=== PATIENT | female | born 1970 | race African-American/Black ===

== ENCOUNTER 2017-09-12 22:25 | Inpatient (IN) | payer OTHER ==
[~2017-09-12] VITALS: Ht 167.6 cm; Wt 86.6 kg
[2017-09-12] MEDS ORDERED: HEPARIN SODIUM 5000UNIT/ML 1ML VIAL ONE (22:41)
[2017-09-12] MEDS ORDERED: FENTANYL CITRATE PF 50 MCG/1 ML 2ML VIAL ONE ×2 (22:55→23:22)
[2017-09-12 22:56] LABS: POTASSIUM 4.1 mmol/L (3.5-5.1)
[2017-09-12] MEDS ORDERED: NITROGLYCERIN 50 MG/D5% WATER 1 BOT ONE (22:56)
[2017-09-12] MEDS ORDERED: HEPARIN SODIUM 1000UNIT/ML 10ML VIAL ONE (22:59)
[2017-09-12] MEDS ORDERED: NITROGLYCERIN 5 MG/ML 10 ML VIAL IV ONE (22:59)
[2017-09-12] MEDS ORDERED: IOPAMIDOL-370 100 ML VIAL IV ONE (22:59)
[2017-09-12 23:00] LABS: INR 0.95 (0.85-1.15); PARTIAL THROMBOPLASTIN TIME 24.3 SEC (26.3-35.5)
[2017-09-12] MEDS ORDERED: LIDOCAINE HCL 2% 20ML ONE (23:00)
[2017-09-12] MEDS ORDERED: ISOVUE-370 50ML VIAL IV ONE (23:00)
[2017-09-12 23:01] LABS: BASOPHILS % (AUTO) 0.7 % (0.0-5.0); EOSINOPHILS % (AUTO) 0.4 % (0.0-8.0); HEMATOCRIT 32.3 % (36-48); LYMPHOCYTES % (AUTO) 10.4 % (21.0-51.0); MEAN CORPUSCULAR HGB CONC 31.7 g/dL (32.0-36.0); MEAN CORPUSCULAR VOLUME 69.4 fL (79-99); MONOCYTES % (AUTO) 6.3 % (3.0-13.0); NEUTROPHILS % (AUTO) 82.2 % (40.0-77.0); PLATELET COUNT (AUTO) 499 K/uL (130-400); RED BLOOD CELL COUNT(AUTO) 4.65 MIL/uL (4.00-5.50); RED CELL DISTRIBUTION WIDTH 16.8 % (11.0-15.5); WHITE BLOOD COUNT (AUTO) 9.9 K/uL (4.8-10.8)
[2017-09-12] MEDS ORDERED: DOPAMINE HCL 400 MG/D5%-WATER 0 ML IV ONE (23:01)
[2017-09-12] MEDS ORDERED: ATROPINE SULFATE 0.1 MG/ML 10 ML SYG IVP ONE (23:01)
[2017-09-12] MEDS ORDERED: METOPROLOL TARTRATE 1 MG/ML 5ML VIAL IV ONE ×2 (23:01→23:18)
[2017-09-12 23:10] LABS: ALBUMIN 3.4 g/dL (3.5-5.0); BILIRUBIN,TOTAL 0.4 mg/dL (0.2-1.0); CREATINE KINASE MB 0.7 ng/mL (0.5-3.6); TOTAL PROTEIN, SERUM 8.2 g/dL (6.0-8.3)
[2017-09-12] MEDS ORDERED: ASPIRIN 81MG TAB.CHEW ONE (23:15)
[2017-09-12] MEDS ORDERED: MIDAZOLAM HCL 1 MG/ML 2ML VIAL ONE ×2 (23:15→23:49)
[2017-09-12] MEDS ORDERED: NITROGLYCERIN 0.4 MG SL TAB SL ONE (23:15)
[2017-09-12] MEDS ORDERED: ONDANSETRON HCL 4 MG/2 ML VIAL ONE (23:46)
[2017-09-13] VITALS (15 sets, daily range): BP systolic 119–168; BP diastolic 52–90
[2017-09-13] MEDS ORDERED: LABETALOL HCL 5 MG/ML 20ML VIAL IV ONE
[2017-09-13] MEDS ORDERED: CLOPIDOGREL BISULFATE 300 MG TAB ONE (00:03)
[2017-09-13] MEDS ORDERED: SODIUM CHLORIDE 0.9% 1000ML 1,000 ML IV SCH (00:14)
[2017-09-13] MEDS ORDERED: ACETAMINOPHEN-CODEINE 300/30MG TAB PO PRN ×2 (00:15)
[2017-09-13] MEDS ORDERED: ONDANSETRON HCL 4 MG/2 ML VIAL IVP PRN (00:15)
[2017-09-13] MEDS ORDERED: ALPRAZOLAM 0.5 MG TABLET PO PRN (00:15)
[2017-09-13] MEDS ORDERED: NITROGLYCERIN 50 MG/D5% WATER 1 BOT IV PRN (00:15)
[2017-09-13] MEDS ORDERED: TEMAZEPAM 30 MG CAP PO PRN (00:15)
[2017-09-13] MEDS ORDERED: AMLODIPINE BESYLATE 5 MG TAB PO ONE (00:52)
[2017-09-13] MEDS ORDERED: POTASSIUM CHLORIDE 10% ELIXIR 20 MEQ/15 ML UDCUP PO PRN (01:30)
[2017-09-13] MEDS ORDERED: LIDOCAINE HCL-MPF 1% 2ML VIAL IVP PRN (01:30)
[2017-09-13] MEDS ORDERED: POTASSIUM CHLORIDE 20MEQ/100ML 100 ML IV PRN (01:30)
[2017-09-13] MEDS ORDERED: ACETAMINOPHEN 325 MG TAB ONE (02:33)
[2017-09-13 02:50] LABS: CREATINE KINASE MB 22.3 ng/mL (0.5-3.6)
[2017-09-13 02:52] LABS: TROPONIN I 7.84 ng/mL (0.00-0.06)
[2017-09-13] MEDS ORDERED: ASPI-555 PO (03:28)
[2017-09-13] MEDS ORDERED: METO25TA6 PO (03:28)
[2017-09-13 05:36] LABS: MEAN CORPUSCULAR HEMOGLOBIN 21.6 pg (27.0-33.0); MEAN CORPUSCULAR HGB CONC 31.5 g/dL (32.0-36.0); MEAN CORPUSCULAR VOLUME 68.5 fL (79-99); PLATELET COUNT (AUTO) 436 K/uL (130-400); RED BLOOD CELL COUNT(AUTO) 3.94 MIL/uL (4.00-5.50); RED CELL DISTRIBUTION WIDTH 16.7 % (11.0-15.5); WHITE BLOOD COUNT (AUTO) 9.7 K/uL (4.8-10.8)
[2017-09-13 05:48] LABS: CARBON DIOXIDE 24 mmol/L (21-32); CHLORIDE 105 mmol/L (101-111); CHOLESTEROL 155 mg/dL (<200); CREATININE 1.1 mg/dL (0.5-1.5); GLOMERULAR FILTR. RATE CALC 68 mL/min (>60); GLUCOSE,RANDOM 118 mg/dL (70-105); HDL CHOLESTEROL 43 mg/dL (35-85); LDL DIRECT 100 mg/dL (0-99); POTASSIUM 3.6 mmol/L (3.5-5.1); SODIUM SERUM 137 mmol/L (136-145); TRIGLYCERIDES 100 mg/dL (30-200); UREA NITROGEN, BLOOD 10 mg/dL (7-18)
[2017-09-13 06:07] LABS: RETICULOCYTE % (AUTO) 2.27 % (0.42-2.23)
[2017-09-13 06:14] LABS: % IRON SATURATION 3.1 % (22-44); FERRITIN 6 ng/mL (15-150); IRON, SERUM 12 mcg/dL (50-170); TOTAL IRON BINDING CAPACITY 382 mcg/dL (250-450)
[2017-09-13] MEDS ORDERED: CLOPIDOGREL BISULFATE 300 MG TAB PO SCH (08:11)
[2017-09-13] MEDS ORDERED: AMLODIPINE BESYLATE 5 MG TAB PO SCH (08:13)
[2017-09-13] MEDS ORDERED: PANTOPRAZOLE SODIUM 40 MG TABLET.DR PO SCH (09:00)
[2017-09-13] MEDS ORDERED: ASPIRIN 325 MG TABLET PO SCH (09:00)
[2017-09-13] MEDS: CLOPIDOGREL BISULFATE 75 MG TAB PO SCH (09:12)
[2017-09-13] MEDS: ATORVASTATIN CALCIUM 10 MG TABLET PO SCH (09:12)
[2017-09-13] MEDS: ASPIRIN 81MG TAB.CHEW PO SCH (09:12)
[2017-09-13] MEDS: AMLODIPINE BESYLATE 5 MG TAB PO SCH (09:13)
[2017-09-13] MEDS: METOPROLOL TARTRATE 50 MG TAB PO SCH ×2 (09:13→22:14)
[2017-09-13] MEDS: HYDROCODONE/ACETAMINOPHEN 5/325 MG TAB PO PRN ×2 (09:32→19:33)
[2017-09-13] MEDS: POTASSIUM CHLORIDE 20 MEQ ERTAB PO PRN ×2 (10:17→11:52)
[2017-09-14 03:28] LABS: HEMATOCRIT 28.2 % (36-48); MEAN CORPUSCULAR HGB CONC 31.5 g/dL (32.0-36.0); MEAN CORPUSCULAR VOLUME 69.7 fL (79-99); PLATELET COUNT (AUTO) 393 K/uL (130-400); RED BLOOD CELL COUNT(AUTO) 4.04 MIL/uL (4.00-5.50); RED CELL DISTRIBUTION WIDTH 16.9 % (11.0-15.5); WHITE BLOOD COUNT (AUTO) 9.6 K/uL (4.8-10.8)
[2017-09-14 03:57] LABS: CREATINE KINASE MB 11.7 ng/mL (0.5-3.6); CREATININE 0.9 mg/dL (0.5-1.5); POTASSIUM 3.8 mmol/L (3.5-5.1)
[2017-09-14 04:00] VITALS: BP 116/58
[2017-09-14 04:02] LABS: TROPONIN I 8.88 ng/mL (0.00-0.06)
[2017-09-14] MEDS: POTASSIUM CHLORIDE 20 MEQ ERTAB PO PRN (05:51)
[2017-09-14 07:00] VITALS: BP 164/89
[2017-09-14] MEDS: METOPROLOL TARTRATE 50 MG TAB PO SCH ×2 (07:54→20:01)
[2017-09-14] MEDS: ATORVASTATIN CALCIUM 10 MG TABLET PO SCH (07:54)
[2017-09-14] MEDS: AMLODIPINE BESYLATE 5 MG TAB PO SCH (07:54)
[2017-09-14] MEDS: CLOPIDOGREL BISULFATE 75 MG TAB PO SCH (07:54)
[2017-09-14] MEDS: ASPIRIN 81MG TAB.CHEW PO SCH (07:55)
[2017-09-14] MEDS: HYDROCODONE/ACETAMINOPHEN 5/325 MG TAB PO PRN (07:55)
[2017-09-14] MEDS ORDERED: LOSARTAN 100 MG TABLET PO SCH (09:00)
[2017-09-14] MEDS ORDERED: METO50TA18 PO (10:02)
[2017-09-14] MEDS ORDERED: METO50 PO (10:13)
[2017-09-14] MEDS ORDERED: LOSA100T2 PO (10:13)
[2017-09-14] MEDS ORDERED: CLOP75TA14 PO (10:13)
[2017-09-14] MEDS ORDERED: ATOR10 PO (10:13)
[2017-09-14 11:00] VITALS: BP 148/85
[2017-09-14 16:00] VITALS: BP 145/83
== END 2017-09-14 20:32 | disposition home or self-care (01) | DRG 247 ==
LOC: EDH 22:25 → EDHIP 22:26 → 2CH 09-13 00:54 → 2BH 09-13 16:52
PROVIDERS: ADMIT Internal Medicine; ATTEND Internal Medicine
PROC: 027034Z Dilation of Coronary Artery, One Artery with Drug-eluting Intraluminal Device, Percutaneous Approach (ICD-10-PCS; principal; 2017-09-13)
PROC: B2111ZZ Fluoroscopy of Multiple Coronary Arteries using Low Osmolar Contrast (ICD-10-PCS; 2017-09-13)
PROC: 4A023N7 Measurement of Cardiac Sampling and Pressure, Left Heart, Percutaneous Approach (ICD-10-PCS; 2017-09-13)
DX: I21.11 ST elevation (STEMI) myocardial infarction involving right coronary artery (principal); I47.2 Ventricular tachycardia; I11.9 Hypertensive heart disease without heart failure; E78.5 Hyperlipidemia, unspecified; F12.90 Cannabis use, unspecified, uncomplicated; F17.210 Nicotine dependence, cigarettes, uncomplicated; I16.0 Hypertensive urgency; I25.10 Atherosclerotic heart disease of native coronary artery without angina pectoris; I25.2 Old myocardial infarction; Z91.19 Patient's noncompliance with other medical treatment and regimen; Z90.710 Acquired absence of both cervix and uterus; Z82.49 Family history of ischemic heart disease and other diseases of the circulatory system
CPT/HCPCS: 36415; 71045; 76882; 80048; 80053; 80061; 82550; 82553; 82607; 82728; 82746; 82948; 83874; 84484; 84703; 85025; 85027; 85347; 85610; 85730; 93005; 93306; 93454; 99152; 99153; 99291; C1725; C1769; C1887; C1894; C9600; C9606; J0461; J1265; J1644; J2250; J2405; J3010; J3490; Q9967

== ENCOUNTER 2017-12-23 23:25 | Inpatient (IN) | payer OTHER, SELFPAY ==
[~2017-12-23] VITALS: Ht 167.6 cm; Wt 84.7 kg
[~2017-12-23 23:25] MED LIST: ASPI-555 PO; ATOR10 PO; CLOP75TA14 PO; LOSA100T2 PO; METO50 PO
[2017-12-23] MEDS ORDERED: NITROGLYCERIN 1GM/1 INCH PACKET TD ONE (23:43)
[2017-12-23] MEDS ORDERED: ASPIRIN 325 MG TABLET ONE (23:44)
[2017-12-23 23:54] LABS: INR 1.02 (0.85-1.15); PARTIAL THROMBOPLASTIN TIME 30.1 SEC (26.3-35.5); PROTHROMBIN TIME 10.7 SEC (9.6-11.6)
[2017-12-23 23:55] LABS: CARBON DIOXIDE 22 mmol/L (21-32); CHLORIDE 98 mmol/L (101-111); CREATININE 1.3 mg/dL (0.5-1.5); GLOMERULAR FILTR. RATE CALC 56 mL/min (>60); GLUCOSE,RANDOM 130 mg/dL (70-105); POTASSIUM 3.5 mmol/L (3.5-5.1); SODIUM SERUM 131 mmol/L (136-145); UREA NITROGEN, BLOOD 9 mg/dL (7-18)
[2017-12-23 23:58] LABS: BASOPHILS % (AUTO) 0.8 % (0.0-5.0); EOSINOPHILS % (AUTO) 0.1 % (0.0-8.0); LYMPHOCYTES % (AUTO) 7.7 % (21.0-51.0); MEAN CORPUSCULAR HEMOGLOBIN 20.8 pg (27.0-33.0); MEAN CORPUSCULAR HGB CONC 31.2 g/dL (32.0-36.0); MEAN CORPUSCULAR VOLUME 66.6 fL (79-99); MONOCYTES % (AUTO) 6.9 % (3.0-13.0); NEUTROPHILS % (AUTO) 84.5 % (40.0-77.0); NUCLEATED RED BLOOD CELLS 0.1 % (0.0-0.19); PLATELET COUNT (AUTO) 398 K/uL (130-400); RED BLOOD CELL COUNT(AUTO) 3.74 MIL/uL (4.00-5.50); RED CELL DISTRIBUTION WIDTH 22.8 % (11.0-15.5); WHITE BLOOD COUNT (AUTO) 10.2 K/uL (4.8-10.8)
[2017-12-24 00:10] LABS: ALANINE AMINOTRANSFERASE 20 U/L (12-78); ALBUMIN 2.9 g/dL (3.5-5.0); ASPARTATE AMINOTRANSFERASE 26 U/L (10-37); BILIRUBIN,TOTAL 0.4 mg/dL (0.2-1.0); CREATINE KINASE MB < 0.5 ng/mL (0.5-3.6); CREATINE KINASE, TOTAL 35 U/L (21-232); MYOGLOBIN 27 ng/mL (10-92); TOTAL PROTEIN, SERUM 7.2 g/dL (6.0-8.3)
[2017-12-24 00:25] LABS: AMPHET/METH SCREEN,URINE NEGATIVE (NEGATIVE); BARBITURATE SCREEN, URINE NEGATIVE (NEGATIVE); BENZODIAZEPINES SCREEN,URINE POSITIVE (NEGATIVE); CANNABINOID SCREEN,URINE POSITIVE (NEGATIVE); COCAINE SCREEN,URINE POSITIVE (NEGATIVE); OPIATE SCREEN,URINE NEGATIVE (NEGATIVE); PHENCYCLIDINE SCREEN,URINE NEGATIVE (NEGATIVE)
[2017-12-24] MEDS ORDERED: KETOROLAC TROMETHAMINE 30MG/ML ONE (04:07)
[2017-12-24 06:45] LABS: EOSINOPHILS % (AUTO) 0.1 % (0.0-8.0); HEMATOCRIT 24.5 % (36-48); LYMPHOCYTES % (AUTO) 10.5 % (21.0-51.0); MEAN CORPUSCULAR HEMOGLOBIN 21.4 pg (27.0-33.0); MEAN CORPUSCULAR HGB CONC 31.4 g/dL (32.0-36.0); MONOCYTES % (AUTO) 11.4 % (3.0-13.0); NUCLEATED RED BLOOD CELLS 0.1 % (0.0-0.19); PLATELET COUNT (AUTO) 362 K/uL (130-400); RED BLOOD CELL COUNT(AUTO) 3.61 MIL/uL (4.00-5.50); RED CELL DISTRIBUTION WIDTH 22.9 % (11.0-15.5); WHITE BLOOD COUNT (AUTO) 7.7 K/uL (4.8-10.8)
[2017-12-24 06:52] LABS: CREATININE 1.2 mg/dL (0.5-1.5); POTASSIUM 3.4 mmol/L (3.5-5.1)
[2017-12-24 06:58] LABS: ALBUMIN 2.8 g/dL (3.5-5.0); BILIRUBIN,TOTAL 0.4 mg/dL (0.2-1.0); TOTAL PROTEIN, SERUM 6.9 g/dL (6.0-8.3)
[2017-12-24] MEDS: VITAMIN B COMPLEX 1 CAPSULE PO SCH (09:45)
[2017-12-24] MEDS: METOPROLOL TARTRATE 50 MG TAB PO SCH ×2 (09:45→21:09)
[2017-12-24] MEDS: FERROUS FUMARATE 324 MG TABLET PO SCH ×2 (09:45→21:09)
[2017-12-24] MEDS: LOSARTAN 100 MG TABLET PO SCH (09:45)
[2017-12-24] MEDS: ASPIRIN 81MG TAB.CHEW PO SCH (09:45)
[2017-12-24] MEDS ORDERED: CLOPIDOGREL BISULFATE 300 MG TAB PO SCH (09:45)
[2017-12-24] MEDS ORDERED: DOCUSATE SODIUM 100 MG CAP PO ONE (10:31)
[2017-12-24] MEDS ORDERED: ATORVASTATIN CALCIUM 10 MG TABLET ONE (10:31)
[2017-12-24] MEDS ORDERED: CLOPIDOGREL BISULFATE 300 MG TAB ONE (10:31)
[2017-12-24] MEDS ORDERED: METOPROLOL TARTRATE 50 MG TAB ONE (10:32)
[2017-12-24] MEDS ORDERED: LOSARTAN 50 MG TABLET ONE (10:32)
[2017-12-24] MEDS: PANTOPRAZOLE SODIUM 40 MG TABLET.DR PO SCH (16:30)
[2017-12-24] MEDS ORDERED: POTASSIUM CHLORIDE 20MEQ/100ML 100 ML IV PRN (16:30)
[2017-12-24] MEDS ORDERED: POTASSIUM CHLORIDE 10% ELIXIR 20 MEQ/15 ML UDCUP PO PRN (16:30)
[2017-12-24] MEDS ORDERED: POTASSIUM CHLORIDE 20 MEQ ERTAB PO PRN (16:30)
[2017-12-24] MEDS ORDERED: LIDOCAINE HCL-MPF 1% 2ML VIAL IVP PRN (16:30)
[2017-12-24 17:03] VITALS: BP 139/85
[2017-12-24 19:36] VITALS: BP 147/96
[2017-12-24] MEDS: ATORVASTATIN CALCIUM 20 MG TABLET PO SCH (21:09)
[2017-12-24 23:43] VITALS: BP 130/89
[2017-12-24] MEDS: ACETAMINOPHEN 325 MG TAB PO PRN (23:54)
[2017-12-24] MEDS: ONDANSETRON HCL 4 MG/2 ML VIAL IVP PRN (23:54)
[2017-12-25] VITALS (7 sets, daily range): BP systolic 130–151; BP diastolic 71–82
[2017-12-25 04:18] LABS: BASOPHILS % (AUTO) 1.2 % (0.0-5.0); LYMPHOCYTES % (AUTO) 25.8 % (21.0-51.0); MEAN CORPUSCULAR HEMOGLOBIN 20.5 pg (27.0-33.0); MEAN CORPUSCULAR HGB CONC 30.6 g/dL (32.0-36.0); MEAN CORPUSCULAR VOLUME 67.2 fL (79-99); MONOCYTES % (AUTO) 17.7 % (3.0-13.0); NEUTROPHILS % (AUTO) 54.3 % (40.0-77.0); PLATELET COUNT (AUTO) 273 K/uL (130-400); RED BLOOD CELL COUNT(AUTO) 3.72 MIL/uL (4.00-5.50); RED CELL DISTRIBUTION WIDTH 22.9 % (11.0-15.5); WHITE BLOOD COUNT (AUTO) 6.8 K/uL (4.8-10.8)
[2017-12-25 04:41] LABS: HEMOGLOBIN A1C 4.9 % (4.0-6.0)
[2017-12-25 04:43] LABS: ALBUMIN 2.6 g/dL (3.5-5.0); BILIRUBIN,TOTAL 0.3 mg/dL (0.2-1.0); CREATININE 1.2 mg/dL (0.5-1.5); POTASSIUM 3.4 mmol/L (3.5-5.1); TOTAL PROTEIN, SERUM 6.6 g/dL (6.0-8.3)
[2017-12-25] MEDS: VITAMIN B COMPLEX 1 CAPSULE PO SCH (09:54)
[2017-12-25] MEDS: METOPROLOL TARTRATE 50 MG TAB PO SCH ×2 (09:54→20:52)
[2017-12-25] MEDS: DOCUSATE SODIUM 100 MG CAP PO SCH (09:54)
[2017-12-25] MEDS: FERROUS FUMARATE 324 MG TABLET PO SCH ×2 (09:54→20:53)
[2017-12-25] MEDS: CLOPIDOGREL BISULFATE 75 MG TAB PO SCH (09:54)
[2017-12-25] MEDS: ASPIRIN 81MG TAB.CHEW PO SCH (09:54)
[2017-12-25] MEDS: PANTOPRAZOLE SODIUM 40 MG TABLET.DR PO SCH (09:54)
[2017-12-25] MEDS: LOSARTAN 100 MG TABLET PO SCH (09:54)
[2017-12-25] MEDS: ACETAMINOPHEN 325 MG TAB PO PRN ×2 (14:29→20:53)
[2017-12-25] MEDS: ATORVASTATIN CALCIUM 20 MG TABLET PO SCH (20:52)
[2017-12-26] MEDS: ACETAMINOPHEN 325 MG TAB PO PRN (01:36)
[2017-12-26 03:44] VITALS: BP 155/90
[2017-12-26 04:33] LABS: HEMATOCRIT 24.4 % (36-48); MEAN CORPUSCULAR HEMOGLOBIN 21.3 pg (27.0-33.0); MEAN CORPUSCULAR HGB CONC 31.1 g/dL (32.0-36.0); MEAN CORPUSCULAR VOLUME 68.5 fL (79-99); NUCLEATED RED BLOOD CELLS 0.1 % (0.0-0.19); PLATELET COUNT (AUTO) 250 K/uL (130-400); RED BLOOD CELL COUNT(AUTO) 3.57 MIL/uL (4.00-5.50); RED CELL DISTRIBUTION WIDTH 23.1 % (11.0-15.5); WHITE BLOOD COUNT (AUTO) 11.2 K/uL (4.8-10.8)
[2017-12-26 04:54] LABS: BAND NEUTROPHILS % (MANUAL) 6 % (0-2); EOSINOPHILS % (MANUAL) 3 % (1-6); LYMPHOCYTES % (MANUAL) 14 % (22-44); MONOCYTES % (MANUAL) 8 % (2-9); SEGMENTED NEUTROPHILS % 69 % (40-70)
[2017-12-26 05:02] LABS: MAN.DIFF COMMENT-IMPRESSION MANUAL DIFFERENTIAL; PLATELET MORPHOLOGY COMMENT ADEQUATE
[2017-12-26 07:23] VITALS: BP 171/85
[2017-12-26] MEDS: FERROUS FUMARATE 324 MG TABLET PO SCH ×2 (09:01→20:37)
[2017-12-26] MEDS: VITAMIN B COMPLEX 1 CAPSULE PO SCH (09:01)
[2017-12-26] MEDS: METOPROLOL TARTRATE 50 MG TAB PO SCH ×2 (09:01→20:37)
[2017-12-26] MEDS: DOCUSATE SODIUM 100 MG CAP PO SCH (09:01)
[2017-12-26] MEDS: LOSARTAN 100 MG TABLET PO SCH (09:01)
[2017-12-26] MEDS: ASPIRIN 81MG TAB.CHEW PO SCH (09:01)
[2017-12-26] MEDS: PANTOPRAZOLE SODIUM 40 MG TABLET.DR PO SCH (09:02)
[2017-12-26] MEDS: CLOPIDOGREL BISULFATE 75 MG TAB PO SCH (09:02)
[2017-12-26 11:22] VITALS: BP 144/90
[2017-12-26 16:15] VITALS: BP 146/92
[2017-12-26] MEDS ORDERED: MORPHINE SULFATE 2 MG/ML 1ML SYG IVP ONE (18:15)
[2017-12-26 19:29] VITALS: BP 182/91
[2017-12-26] MEDS: ATORVASTATIN CALCIUM 20 MG TABLET PO SCH (20:37)
[2017-12-26] MEDS: ONDANSETRON HCL 4 MG/2 ML VIAL IVP PRN (21:29)
[2017-12-26 23:37] VITALS: BP 162/97
[2017-12-27 03:31] VITALS: BP 162/97
[2017-12-27 04:00] VITALS: BP 153/85
[2017-12-27] MEDS: ASPIRIN 81MG TAB.CHEW PO SCH (07:19)
[2017-12-27] MEDS: LOSARTAN 100 MG TABLET PO SCH (07:19)
[2017-12-27] MEDS: FERROUS FUMARATE 324 MG TABLET PO SCH ×2 (07:19→19:57)
[2017-12-27] MEDS: VITAMIN B COMPLEX 1 CAPSULE PO SCH (07:19)
[2017-12-27] MEDS: DOCUSATE SODIUM 100 MG CAP PO SCH (07:19)
[2017-12-27] MEDS: METOPROLOL TARTRATE 50 MG TAB PO SCH ×2 (07:19→19:57)
[2017-12-27] MEDS: PANTOPRAZOLE SODIUM 40 MG TABLET.DR PO SCH (07:19)
[2017-12-27] MEDS: CLOPIDOGREL BISULFATE 75 MG TAB PO SCH (07:20)
[2017-12-27 07:37] VITALS: BP 156/90
[2017-12-27 11:00] VITALS: BP 131/77
[2017-12-27] MEDS: IBUPROFEN 800 MG TAB PO PRN (14:50)
[2017-12-27 16:14] VITALS: BP 147/84
[2017-12-27] MEDS: ATORVASTATIN CALCIUM 20 MG TABLET PO SCH (19:58)
[2017-12-27 20:06] VITALS: BP 148/88
[2017-12-28] VITALS (26 sets, daily range): BP systolic 102–171; BP diastolic 56–93
[2017-12-28] MEDS: IBUPROFEN 800 MG TAB PO PRN (01:15)
[2017-12-28 04:12] LABS: HEMATOCRIT 23.2 % (36-48); MEAN CORPUSCULAR HEMOGLOBIN 22.2 pg (27.0-33.0); MEAN CORPUSCULAR HGB CONC 31.8 g/dL (32.0-36.0); MEAN CORPUSCULAR VOLUME 69.9 fL (79-99); NUCLEATED RED BLOOD CELLS 0.1 % (0.0-0.19); PLATELET COUNT (AUTO) 231 K/uL (130-400); RED BLOOD CELL COUNT(AUTO) 3.32 MIL/uL (4.00-5.50); WHITE BLOOD COUNT (AUTO) 9.6 K/uL (4.8-10.8)
[2017-12-28 04:30] LABS: BAND NEUTROPHILS % (MANUAL) 3 % (0-2); EOSINOPHILS % (MANUAL) 2 % (1-6); LYMPHOCYTES % (MANUAL) 23 % (22-44); MONOCYTES % (MANUAL) 10 % (2-9); REACTIVE LYMPHOCYTES 2 % (0-0); SEGMENTED NEUTROPHILS % 60 % (40-70)
[2017-12-28 04:31] LABS: MAN.DIFF COMMENT-IMPRESSION MANUAL DIFFERENTIAL; PLATELET MORPHOLOGY COMMENT ADEQUATE
[2017-12-28] MEDS ORDERED: LACTATED RINGERS 1000ML 1,000 ML IV ONE (07:04)
[2017-12-28] MEDS ORDERED: DEXAMETHASONE SOD PHOSPHATE 10MG/ML 1ML VIAL ONE (07:15)
[2017-12-28] MEDS ORDERED: ONDANSETRON HCL 4 MG/2 ML VIAL ONE (07:15)
[2017-12-28] MEDS ORDERED: GLYCOPYRROLATE 0.2 MG/ML 5 ML VIAL ONE (07:15)
[2017-12-28] MEDS ORDERED: LIDOCAINE PF 2% 5ML ABBOJECT ONE (07:15)
[2017-12-28] MEDS ORDERED: FENTANYL CITRATE PF 50 MCG/1 ML 2ML VIAL ONE (07:16)
[2017-12-28] MEDS ORDERED: MIDAZOLAM HCL 1 MG/ML 2ML VIAL ONE (07:16)
[2017-12-28] MEDS ORDERED: PROPOFOL 10 MG/ML 20ML VIAL IV ONE (07:16)
[2017-12-28] MEDS: METOPROLOL TARTRATE 50 MG TAB PO SCH ×3 (08:18→20:21)
[2017-12-28] MEDS: FERROUS FUMARATE 324 MG TABLET PO SCH ×2 (08:18→20:21)
[2017-12-28] MEDS: VITAMIN B COMPLEX 1 CAPSULE PO SCH (08:18)
[2017-12-28] MEDS: DOCUSATE SODIUM 100 MG CAP PO SCH ×2 (08:18→13:01)
[2017-12-28] MEDS: PANTOPRAZOLE SODIUM 40 MG TABLET.DR PO SCH ×2 (08:18→13:02)
[2017-12-28] MEDS: CLOPIDOGREL BISULFATE 75 MG TAB PO SCH ×2 (08:18→13:01)
[2017-12-28] MEDS: ASPIRIN 81MG TAB.CHEW PO SCH ×2 (08:18→13:01)
[2017-12-28] MEDS: LOSARTAN 100 MG TABLET PO SCH ×2 (08:18→13:01)
[2017-12-28] MEDS ORDERED: KETOROLAC TROMETHAMINE 30MG/ML ONE (08:19)
[2017-12-28] MEDS: ATORVASTATIN CALCIUM 20 MG TABLET PO SCH (20:21)
[2017-12-28] MEDS: ACETAMINOPHEN 325 MG TAB PO PRN (23:33)
[2017-12-29] VITALS (9 sets, daily range): BP systolic 140–181; BP diastolic 78–111
[2017-12-29 04:00] LABS: HEMATOCRIT 22.5 % (36-48); MEAN CORPUSCULAR HEMOGLOBIN 21.9 pg (27.0-33.0); MEAN CORPUSCULAR HGB CONC 30.9 g/dL (32.0-36.0); PLATELET COUNT (AUTO) 215 K/uL (130-400); RED BLOOD CELL COUNT(AUTO) 3.17 MIL/uL (4.00-5.50); RED CELL DISTRIBUTION WIDTH 23.2 % (11.0-15.5); WHITE BLOOD COUNT (AUTO) 16.7 K/uL (4.8-10.8)
[2017-12-29 04:08] LABS: BAND NEUTROPHILS % (MANUAL) 1 % (0-2); EOSINOPHILS % (MANUAL) 1 % (1-6); LYMPHOCYTES % (MANUAL) 14 % (22-44); MONOCYTES % (MANUAL) 4 % (2-9); SEGMENTED NEUTROPHILS % 80 % (40-70)
[2017-12-29 04:09] LABS: MAN.DIFF COMMENT-IMPRESSION MANUAL DIFFERENTIAL
[2017-12-29 04:10] LABS: PLATELET MORPHOLOGY COMMENT ADEQUATE
[2017-12-29] MEDS: HYDRALAZINE HCL 20 MG/ML VIAL IV PRN (04:32)
[2017-12-29] MEDS: LOSARTAN 100 MG TABLET PO SCH (08:02)
[2017-12-29] MEDS: PANTOPRAZOLE SODIUM 40 MG TABLET.DR PO SCH (08:02)
[2017-12-29] MEDS: VITAMIN B COMPLEX 1 CAPSULE PO SCH (08:02)
[2017-12-29] MEDS: METOPROLOL TARTRATE 50 MG TAB PO SCH ×2 (08:02→20:15)
[2017-12-29] MEDS: FERROUS FUMARATE 324 MG TABLET PO SCH ×2 (08:02→20:15)
[2017-12-29] MEDS: DOCUSATE SODIUM 100 MG CAP PO SCH (08:02)
[2017-12-29] MEDS: CLOPIDOGREL BISULFATE 75 MG TAB PO SCH (08:24)
[2017-12-29] MEDS: ASPIRIN 81MG TAB.CHEW PO SCH (08:24)
[2017-12-29] MEDS ORDERED: AMLODIPINE BESYLATE 5 MG TAB PO SCH (09:00)
[2017-12-29] MEDS ORDERED: LACTULOSE 20 GM/30 ML UDCUP PO PRN (15:00)
[2017-12-29] MEDS: ATORVASTATIN CALCIUM 20 MG TABLET PO SCH (20:15)
[2017-12-30 00:38] VITALS: BP 180/89
[2017-12-30] MEDS: HYDRALAZINE HCL 20 MG/ML VIAL IV PRN (00:48)
[2017-12-30 03:32] VITALS: BP 160/84
[2017-12-30 05:32] LABS: BASOPHILS % (AUTO) 1.1 % (0.0-5.0); EOSINOPHILS % (AUTO) 1.7 % (0.0-8.0); HEMATOCRIT 28.6 % (36-48); LYMPHOCYTES % (AUTO) 20.3 % (21.0-51.0); MEAN CORPUSCULAR HGB CONC 32.7 g/dL (32.0-36.0); MEAN CORPUSCULAR VOLUME 73.4 fL (79-99); MONOCYTES % (AUTO) 6.3 % (3.0-13.0); NEUTROPHILS % (AUTO) 70.6 % (40.0-77.0); NUCLEATED RED BLOOD CELLS 0.1 % (0.0-0.19); PLATELET COUNT (AUTO) 258 K/uL (130-400); RED CELL DISTRIBUTION WIDTH 23.8 % (11.0-15.5); WHITE BLOOD COUNT (AUTO) 14.8 K/uL (4.8-10.8)
[2017-12-30 07:11] VITALS: BP 164/93
[2017-12-30] MEDS ORDERED: AMLO10TA2 PO (07:45)
[2017-12-30] MEDS ORDERED: AMLODIPINE BESYLATE 5 MG TAB PO SCH (09:00)
[2017-12-30] MEDS: LOSARTAN 100 MG TABLET PO SCH (09:03)
[2017-12-30] MEDS: FERROUS FUMARATE 324 MG TABLET PO SCH (09:03)
[2017-12-30] MEDS: DOCUSATE SODIUM 100 MG CAP PO SCH (09:03)
[2017-12-30] MEDS: PANTOPRAZOLE SODIUM 40 MG TABLET.DR PO SCH (09:03)
[2017-12-30] MEDS: CLOPIDOGREL BISULFATE 75 MG TAB PO SCH (09:03)
[2017-12-30] MEDS: VITAMIN B COMPLEX 1 CAPSULE PO SCH (09:04)
[2017-12-30] MEDS: ASPIRIN 81MG TAB.CHEW PO SCH (09:04)
[2017-12-30] MEDS: METOPROLOL TARTRATE 50 MG TAB PO SCH (09:04)
[2017-12-30 10:58] VITALS: BP 131/74
[2017-12-30] MEDS ORDERED: CLOP75TA14 PO (12:22)
== END 2017-12-30 16:30 | disposition home or self-care (01) | DRG 744 ==
LOC: EDH 23:25 → EDHIP 23:26 → OBSVTOIN 23:26 → 2DH 12-24 16:46
PROVIDERS: ADMIT Internal Medicine Nephrology; ATTEND Internal Medicine Nephrology
PROC: 30233N1 Transfusion of Nonautologous Red Blood Cells into Peripheral Vein, Percutaneous Approach (ICD-10-PCS; 2017-12-24)
PROC: 0UDB8ZZ Extraction of Endometrium, Via Natural or Artificial Opening Endoscopic (ICD-10-PCS; principal; 2017-12-28 07:46)
DX: N92.1 Excessive and frequent menstruation with irregular cycle (principal); E46 Unspecified protein-calorie malnutrition; I25.10 Atherosclerotic heart disease of native coronary artery without angina pectoris; D50.0 Iron deficiency anemia secondary to blood loss (chronic); Z95.5 Presence of coronary angioplasty implant and graft; I10 Essential (primary) hypertension; R07.81 Pleurodynia; F19.10 Other psychoactive substance abuse, uncomplicated; E78.5 Hyperlipidemia, unspecified; F12.90 Cannabis use, unspecified, uncomplicated; F14.10 Cocaine abuse, uncomplicated; F17.200 Nicotine dependence, unspecified, uncomplicated; I16.0 Hypertensive urgency; J06.9 Acute upper respiratory infection, unspecified; I25.2 Old myocardial infarction; Z59.9 Problem related to housing and economic circumstances, unspecified; Z79.82 Long term (current) use of aspirin; Z98.891 History of uterine scar from previous surgery; Z91.19 Patient's noncompliance with other medical treatment and regimen; Z91.14 Patient's other noncompliance with medication regimen; Z90.710 Acquired absence of both cervix and uterus; Z88.5 Allergy status to narcotic agent; Z82.49 Family history of ischemic heart disease and other diseases of the circulatory system
CPT/HCPCS: 36415; 71045; 76856; 80053; 80305; 82550; 82553; 83036; 83874; 83880; 84484; 84703; 85025; 85610; 85730; 86850; 86900; 86901; 86922; 88305; 93005; 99291; A4351; J0360; J1100; J1885; J2001; J2250; J2405; J2704; J3010; J3490; J7030; J7120; P9016